=== PATIENT | male | born 1965 | race Caucasian/White ===

== ENCOUNTER 2017-07-04 09:05 | Day surgery (SDC) | payer MEDICARE, OTHER ==
[~2017-07-04] VITALS: Ht 177.8 cm; Wt 127.9 kg
[~2017-07-04 09:05] MED LIST: BENZTROPINE MESY1 MG PO; OMEPRAZOLE20 MG PO; PERPHENAZINE4 MG PO; PROAIR HFA8.5 GM INH; RISPERIDONE3 MG PO
--- NOTE | 2017-07-04 11:48 | NUR ---
1100 DENIES ANY NEEDS CONTS TO WAIT. WAS GIVEN UPDATE. IV PATENT.
--- NOTE | 2017-07-05 06:28 | OR ---
[facility] [address], [place] [address] Signed DATE OF OPERATION: 07/04/2017 SURGEON: Libby Shah MD PREOPERATIVE DIAGNOSES: 1. Epigastric abdominal pain. 2. Alcohol abuse. POSTOPERATIVE DIAGNOSES: 1. Diffuse gastritis. 2. Distal esophagitis with linear ulcerations. PROCEDURES: EGD with CLOtest and biopsy of the duodenum and antrum. ESTIMATED BLOOD LOSS: None. INDICATIONS: Edouard is a 51-year-old gentleman, who suffers with paranoid schizophrenia. He lives with his adoptive father. He is single and has no children. He likes to drink, but light every day. He has between 6 and 12 beers each day. He talks about intermittent epigastric abdominal pain. He had been to his primary care provider. His serum H. pylori was negative. He has never had any black or tarry stools. He said he would like to quit drinking, but he knows he needs help in that regard. In the meantime, his primary care provider asked me to perform an upper endoscopy to evaluate the stomach and esophagus. In the office, I gave [employer] pamphlet on upper endoscopy. We looked at that together along with the risks including, but not limited to, gas bloating, crampy abdominal pain, bleeding, perforation, requiring surgery, and missed diagnosis. We also discussed the need for IV conscious sedation. Given his daily use of alcohol, never get him asleep with our standard Versed and fentanyl. Plus he has a very heavy full neck. Consequently, we did ask our anesthesia provider to help us with increased monitoring sedation with propofol. Edouard had expressed understanding and wished to proceed. PROCEDURE NOTE: Edouard was taken into our endoscopy suite and placed in the supine semi-recumbent position. He was given IV sedation with propofol per nurse fractionation supervisor. A bite block was utilized for the case. The posterior oropharynx was anesthetized with Hurricaine spray. The gastroscope was introduced and advanced out into the third portion of the duodenum under direct visualization of camera without difficulty. We went and took a biopsy of the duodenum for pathologic review due to the history of diarrhea. The pyloric bulb was unremarkable. Back in the stomach, he has diffuse superficial erythematous gastritis. No bleeding at this time. We took a biopsy of the antrum for CLOtest as well as pathologic review. Upon retroflexion of scope, it looks like he might have just a small hiatal hernia, but it was hard to know for sure. We did not see any obvious Electronically Signed By: LIBBY SHAH MD 07/05/17 0628 PATIENT NAME: EDOUARD GRAHAM OPERATIVE REPORT DATE OF : 61 PHYSICIAN: LIBBY SHAH MD REPORT #: [id number] REPORT IS CONFIDENTIAL AND NOT TO BE RELEASED WITHOUT AUTHORIZATION [address] [address] Signed gastric varices. No ulcerations. The scope was withdrawn up through the area of GE junction, which was compliant without stricture. He did have disruption at the Z-line and he clearly has distal esophagitis with linear ulcerations. We gave it some time and we were having trouble seeing whether or not he had esophageal varices due to the inflammatory changes. Consequently, we did not take any biopsies out of the distal esophagus. Nevertheless, it was quite clear that he has distal esophagitis. His middle and upper esophagus were unremarkable. After this, the gas was suctioned out and the gastroscope removed. Edouard tolerated the procedure quite well. RECOMMENDATIONS: I will see Edouard back in my office in 7 to 14 days to review his results. He might consider using a proton pump inhibitor. He needs to abstain from alcohol with the help of his primary care provider. Libby Shah MD ALB/MODL /[id number] cc: SUZANNE Arreguin MD Electronically Signed By: LIBBY SHAH MD 07/05/17 0628 PATIENT NAME: EDOUARD GRAHAM OPERATIVE REPORT DATE OF : 61 PHYSICIAN: LIBBY SHAH MD REPORT #: [id number] REPORT IS CONFIDENTIAL AND NOT TO BE RELEASED WITHOUT AUTHORIZATION
== END 2017-07-04 13:35 | disposition home or self-care (01) ==
LOC: OPS 09:05 → DS 09:05
PROVIDERS: Colon & Rectal Surgery
PROC: 0DB78ZX Excision of Stomach, Pylorus, Via Natural or Artificial Opening Endoscopic, Diagnostic (ICD-10-PCS; 2017-07-04)
PROC: 0DB98ZX Excision of Duodenum, Via Natural or Artificial Opening Endoscopic, Diagnostic (ICD-10-PCS; principal; 2017-07-04 10:30)
DX: K29.80 Duodenitis without bleeding (principal); K29.50 Unspecified chronic gastritis without bleeding; F10.188 Alcohol abuse with other alcohol-induced disorder; F20.0 Paranoid schizophrenia; M94.0 Chondrocostal junction syndrome [Tietze]; G24.01 Drug induced subacute dyskinesia; T43.505A Adverse effect of unspecified antipsychotics and neuroleptics, initial encounter; Z79.899 Other long term (current) drug therapy
CPT/HCPCS: 00740; 86677; 88305; J2704; J7120